=== PATIENT | male | born 1965 | race Caucasian/White ===

== ENCOUNTER 2024-10-11 03:21 | Emergency (ER) | payer BC, SELFPAY ==
[2024-10-11 03:26] VITALS: BP 128/76
[2024-10-11 03:44] VITALS: BMI 33.8
[2024-10-11 03:59] LABS: % Basophils 0.6 % (0-2); % Eosinophils 0.7 % (0-6); % Immature Granulocytes 0.4 % (0-0.5); % Lymphocytes 15.7 % (20.5-51.1); % Neutrophils 74.6 % (42.2-75.2); Absolute Basophils 0.1 10^3/uL (0-0.2); Absolute Eosinophils 0.1 10^3/uL (0-0.7); Absolute Immature Granulocytes 0.1 10^3/uL (0-0.05); Absolute Lymphocytes 2.1 10^3/uL (1.2-3.4); Absolute Monocytes 1.1 10^3/uL (0.1-0.6); Absolute Neutrophils 9.9 10^3/uL (1.4-6.5); Hematocrit 45.7 % (39.0-52.0); Hemoglobin 15.8 g/dL (13.0-18.0); Mean Corp Hgb Conc. 34.6 g/dL (33.0-37.0); Mean Corpuscular Hgb 29.8 pg (27.0-31.0); Mean Corpuscular Volume 86.2 fL (80.0-94.0); Mean Platelet Volume 11.1 fL (7.4-10.4); Nucleated Red Blood Cells % 0 % (-); Platelet Count 208 10^3/uL (130-400); Red Cell Dist. Width 13.9 % (11.5-14.5); White Blood Cell Count 13.2 10^3/uL (4.8-10.8)
[2024-10-11 04:06] LABS: Urine Albumin Negative (Neg - Trace); Urine Bilirubin Negative (Negative); Urine Character Clear (Clear); Urine Color Amber; Urine Glucose 4+ (Negative); Urine Ketone Negative (Negative); Urine Leukocyte Negative (Negative); Urine Nitrite Negative (Negative); Urine Occult Blood Negative (Negative); Urine Specific Gravity 1.015 (<1.030); Urine Urobilinogen Negative (Neg - 1+)
--- NOTE | 2024-10-11 04:10 | ED.GENMED ---
History of Present Illness
<Nohemy Chambers DO - Last Filed: 10/11/24 06:33>
General
Chief Complaint: Abdominal Symptoms
Source: patient
Exam Limitations: none
Time Seen by Provider: 10/11/24 04:01
Nursing documentation reviewed up to this point in time: agreed with
History of Present Illness
History of Present Illness:
This is a 59-year-old gentleman who has history of insulin-dependent diabetes, hypertension, hyperlipidemia. He presents with right flank pain that began early this morning, waking him from sleep. He felt well prior to bed. No insightful injury
but admits to bending over putting moisturizer on his legs just prior to bed. Right flank pain is worse with movement, worse with lying supine. No other associated symptoms. He denies nausea nor vomiting, no diaphoresis, no fever no chills. He
did pass 1 loose stool last night. He also admits to some urinary frequency over the past few days but denies dysuria nor urgency nor hematuria. No coughing or shortness of breath.
No history of similar episodes of flank pain.
No prior abdominal surgeries.
He has not taken anything for pain.
Past History
<Nohemy Chambers DO - Last Filed: 10/11/24 06:33>
Past History
ED Past Medical History: HTN, Hypercholesterolemia, IDDM (Insulin requiring diabetes) and Other (Tinea cruris)
ED Past Surgical History: Other (Ganglion cyst surgery-left wrist )
Social History
Tobacco: Non-smoker
Alcohol: None
Drug: None
Personal:
Living: with family
Employment: Employed
Family History
Family History: Negative CAD
Phy Exam
<Nohemy Chambers DO - Last Filed: 10/11/24 06:33>
Physical Exam
Physical Exam:
GENERAL: 59-year-old obese gentleman appears his stated age, awake and alert, pleasant, appears in no acute distress. is accompanying. Vital signs within normal limits
EYE: anicteric
NECK: Supple, nontender, no meningismus, no significant adenopathy.
ENT: oral mucosa is moist. T no rhinorrhea.
CARDIAC: Regular rate and rhythm. no murmur.
LUNGS: Clear breath sounds bilaterally, no acute respiratory distress, no wheezes/rales/rhonchi
ABDOMEN: Rotund, soft, nondistended, mild tenderness right lateral upper quadrant/right lateral flank region and mild tenderness right mid lateral abdomen. No r/g, no cvat. normoactive BS.
BACK: No midline bony tenderness. Mild tenderness right lower lumbar region. Straight leg raising is negative bilaterally.
NEUROLOGICAL: Alert and oriented x3, no focal neuro deficits. Gait is kowalski and steady.
SKIN: Warm and dry, normal color, skin intact. Fungal rash bilateral groin/bilateral medial upper thighs.
MUSCULOSKELETAL: No C/C/E. peripheral pulses are full and equal b/l. No palpable tenderness.
PSYCH: Normal and appropriate interaction.
Course
<Nohemy Chambers, DO - Last Filed: 10/11/24 06:33>
Orders/Labs/Results
Orders:
Orders
10/11/24 03:40
IV Insert/Care/Rem.- Treatment PRN
10/11/24 03:45
Complete Blood Count/With Diff Urgent
Comprehensive Metabolic Panel Urgent
Lipase Urgent
Urinalysis Reflex To Culture Urgent
Date Specimen was Collected: 10/11/24
Time Specimen was Collected: 03:40
10/11/24 04:09
Ketorolac [Toradol] 15 mg IV NOW STA
10/11/24 04:33
CT Abd/pelvis W Iv Cont Urgent
Comment:
Reason For Exam: acute R flank, RUQ pain
10/11/24 05:00
HYDROmorphone [Dilaudid] 0.5 mg .ROUTE .STK-MED ONE
10/11/24 05:06
HYDROmorphone [Dilaudid] 0.5 mg IV NOW STA
10/11/24 06:18
US Abdomen Complete/Upper Urgent
Comment:
Reason For Exam: acute RUQ, R lat flank pain, elevated LFT's
Abnormal Lab Results
10/11/24
03:45
WBC 13.2 H 10^3/uL
(4.8-10.8)
MPV 11.1 H fL
(7.4-10.4)
Abs Immat Gran (auto) 0.1 H 10^3/uL
(0-0.05)
Absolute Neuts (auto) 9.9 H 10^3/uL
(1.4-6.5)
Absolute Monos (auto) 1.1 H 10^3/uL
(0.1-0.6)
Lymphocytes % 15.7 L %
(20.5-51.1)
Chloride 109 H mmol/L
(98-107)
BUN 21 H mg/dl
(9-20)
Creatinine 0.5 L mg/dL
(0.7-1.3)
Glucose 201 H mg/dl
(70-99)
ALT 93 H U/L
(0-50)
Alkaline Phosphatase 168 H U/L
(38-126)
Lipase 363 H U/L
(23-300)
Urine Glucose 4+ A
(Negative)
10/11/24 03:45
10/11/24 03:45
Vital Signs
Initial and Last Documented VS:
Initial Vital Signs
Temp Pulse Resp BP Pulse Ox
97.5 F 64 22 128/76 95
10/11/24 03:26 10/11/24 03:26 10/11/24 03:26 10/11/24 03:26 10/11/24 03:26
Last Documented Vital Signs
Temp Pulse Resp BP Pulse Ox
97.5 F 63 22 126/76 94
10/11/24 03:26 10/11/24 05:10 10/11/24 03:26 10/11/24 08:08 10/11/24 08:09
<Marlo Dsouza MD - Last Filed: 10/11/24 09:24>
Orders/Labs/Results
Orders:
Orders
10/11/24 03:40
IV Insert/Care/Rem.- Treatment PRN
10/11/24 03:45
Complete Blood Count/With Diff Urgent
Comprehensive Metabolic Panel Urgent
Lipase Urgent
Urinalysis Reflex To Culture Urgent
Date Specimen was Collected: 10/11/24
Time Specimen was Collected: 03:40
10/11/24 04:09
Ketorolac [Toradol] 15 mg IV NOW STA
10/11/24 04:33
CT Abd/pelvis W Iv Cont Urgent
Comment:
Reason For Exam: acute R flank, RUQ pain
10/11/24 05:00
HYDROmorphone [Dilaudid] 0.5 mg .ROUTE .STK-MED ONE
10/11/24 05:06
HYDROmorphone [Dilaudid] 0.5 mg IV NOW STA
10/11/24 06:18
US Abdomen Complete/Upper Urgent
Comment:
Reason For Exam: acute RUQ, R lat flank pain, elevated LFT's
Abnormal Lab Results
10/11/24
03:45
WBC 13.2 H 10^3/uL
(4.8-10.8)
MPV 11.1 H fL
(7.4-10.4)
Abs Immat Gran (auto) 0.1 H 10^3/uL
(0-0.05)
Absolute Neuts (auto) 9.9 H 10^3/uL
(1.4-6.5)
Absolute Monos (auto) 1.1 H 10^3/uL
(0.1-0.6)
Lymphocytes % 15.7 L %
(20.5-51.1)
Chloride 109 H mmol/L
(98-107)
BUN 21 H mg/dl
(9-20)
Creatinine 0.5 L mg/dL
(0.7-1.3)
Glucose 201 H mg/dl
(70-99)
ALT 93 H U/L
(0-50)
Alkaline Phosphatase 168 H U/L
(38-126)
Lipase 363 H U/L
(23-300)
Urine Glucose 4+ A
(Negative)
10/11/24 03:45
10/11/24 03:45
Vital Signs
Initial and Last Documented VS:
Initial Vital Signs
Temp Pulse Resp BP Pulse Ox
97.5 F 64 22 128/76 95
10/11/24 03:26 10/11/24 03:26 10/11/24 03:26 10/11/24 03:26 10/11/24 03:26
Last Documented Vital Signs
Temp Pulse Resp BP Pulse Ox
97.5 F 63 22 126/76 94
10/11/24 03:26 10/11/24 05:10 10/11/24 03:26 10/11/24 08:08 10/11/24 08:09
<Nohemy Chambers, DO - Last Filed: 10/11/24 06:33>
MDM/Problems Addressed
Differential Diagnosis Includes:
Concern for musculoskeletal pain, renal colic/ureteric stone, pyelonephritis, appendicitis, colitis, cholecystitis.
Will check labs, urinalysis and plan for CT abdomen and pelvis.
Will trial a small dose of IV Toradol for pain.
Chronic conditions affecting care: DM and HTN
<Nohemy Chambers DO - Last Filed: 10/11/24 06:33>
*Radiology
Radiology exam reviewed: radiology read reviewed
*Pulse Oximetry
SaO2: 95
Oxygen Mode of Delivery: Room air
Patient hypoxic: no
*Sap Ppm Consultant Interpretation
Rate: normal
Interpretation: normal
Rhythm: sinus
*Critical Care Note
Total Time (30-74mins, 75-104mins- exclusive of procedures): Not Applicable
<Nohemy Chambers DO - Last Filed: 10/11/24 06:33>
Update Note
Update Note:
06:30
No significant relief of pain after small IV dose of Toradol the patient is currently pain-free after an IV dose of Dilaudid.
He continues to deny nausea. He has had no diarrhea. He remains afebrile.
Labs are remarkable for mildly elevated white blood cell count of 13.2.
Mildly elevated ALT at 93, alkaline phosphatase at 168. Normal bilirubin. Mildly elevated lipase at 363. Mildly elevated random glucose 201.
Urinalysis unremarkable save for for glucose.
CAT scan concerning for acute gastroenteritis without obstruction or perforation. There is also note of slightly distended gallbladder with trace surrounding free fluid.
I am concerned that right flank, right upper quadrant pain is acute cholecystitis in nature versus acute biliary colic. Less likely gastroenteritis as cause for symptoms especially as he has had no nausea, vomiting, diarrhea.
Will check abdominal ultrasound and continue to observe.
<Marlo Dsouza MD - Last Filed: 10/11/24 09:24>
Update Note
Update Note:
06:30
No significant relief of pain after small IV dose of Toradol the patient is currently pain-free after an IV dose of Dilaudid.
He continues to deny nausea. He has had no diarrhea. He remains afebrile.
Labs are remarkable for mildly elevated white blood cell count of 13.2.
Mildly elevated ALT at 93, alkaline phosphatase at 168. Normal bilirubin. Mildly elevated lipase at 363. Mildly elevated random glucose 201.
Urinalysis unremarkable save for for glucose.
CAT scan concerning for acute gastroenteritis without obstruction or perforation. There is also note of slightly distended gallbladder with trace surrounding free fluid.
I am concerned that right flank, right upper quadrant pain is acute cholecystitis in nature versus acute biliary colic. Less likely gastroenteritis as cause for symptoms especially as he has had no nausea, vomiting, diarrhea.
Will check abdominal ultrasound and continue to observe.
0915...
Ultrasound shows gallbladder wall thickening. No other findings to support acute cholecystitis. No gallstones pericholecystic fluid. Negative Hidalgo sign. CT also confirms enteritis with some gallbladder wall thickening. Abdomen is soft and
nontender at this time. I had a lengthy discussion with the patient. Diagnosis is somewhat unclear still. His story is more concerning for a gallbladder issue and he does have some gallbladder wall thickening elevated white count and mild LFT
elevation. This could be an acalculous cholecystitis. I had recommended admission observation in the hospital repeat LFTs possible HIDA scan in the hospital to make sure this does not progress to a severe infected gallbladder or sepsis secondary
to acute acalculous cholecystitis. After discussion, and a private discussion the patient had with his , patient does not want to stay in the hospital. Upon reentering the room after the initial conversation patient was dressed wanting to
leave the hospital. I had a very long second conversation, reiterating the first conversation, explaining of the uncertainty of the diagnosis and the possibility of a infected gallbladder and the fact that this can progress to sepsis and become
life-threatening. He would prefer observation as outpatient.
ED Attending Note
<Nohemy Chambers DO - Last Filed: 10/11/24 06:33>
-
Portions of this chart may have been created with voice recognition software.� Occasional wrong word or��sound alike� substitutions may have occurred due to the inherent limitations of voice recognition software.
Discharge Plan
Departure
Patient Disposition: Home (Routine Discharge)
Date of Disposition: 10/11/24
Time of Disposition: 09:20
Patient with high blood pressure during this ER visit?: Yes
Discharge Problem:
Abdominal flank pain, Possible acalculous cholecystitis, Possible enteritis
Instructions: Abdominal Pain, BLOOD PRESSURE
Prescriptions:
No Action
enalapril maleate [Vasotec] 20 MG tablet
20 mg PO DAILY
pioglitazone [Actos] 45 MG tablet
45 mg PO DAILY
aspirin 81 MG tablet,delayed release (DR/EC)
81 mg PO DAILY
glimepiride 4 MG tablet
4 mg PO DAILY
Patient Comments:
pt states that this was d/c'd [employer]
insulin NPH isoph U-100 human [Humulin N NPH U-100 Insulin] 100 UNIT/1 ML suspension
25 unit SQ DAILY
hydrochlorothiazide 12.5 MG capsule
12.5 mg PO DAILY
multivitamin 1 EACH capsule
1 ea PO DAILY
metformin 500 MG tablet extended release 24 hr
1,000 mg PO BID
coenzyme Q10 120 MG capsule
100 mg PO DAILY
rosuvastatin [Crestor] 20 MG tablet
10 mg PO DAILY
exenatide [Byetta] 10 MCG/0.04 ML pen injector
10 mcg SQ BID
Referrals:
Keisha Cabello MD [Family Provider, Family Practice] - Tomorrow
Activity Restrictions/Additional Instructions:
As we discussed, it would be safer to stay in the hospital and treat this as a possible infected gallbladder.
Please return immediately with any recurrence of this unusual new pain that you had or fever or vomiting.
Call your primary physician tomorrow. Would consider outpatient HIDA scan and repeating labs in the next few days
Interventions
Interventions:
*Risk Screen - Suicide Last Done: 10/11/24 03:26
*General Assessment Last Done: 10/11/24 03:44
*Neglect/Abuse Screening Last Done: 10/11/24 03:26
*ED- Fall Risk Assessment Last Done: 10/11/24 03:44
*ED COVID-19 Vaccine History Last Done: 10/11/24 03:44
UE-Ohspmx-Owpeuplqef Assessment Last Done: 10/11/24 03:44
Discharge Date and Time
Print Language: LUX[place]BOURGISH
[2024-10-11] MEDS: TORADOL 15 MG IV (04:12)
[2024-10-11 04:26] LABS: ALT (SGPT) 93 U/L (0-50); AST (SGOT) 59 U/L (17-59); Albumin 4.3 g/dl (3.5-5.0); Alkaline Phosphatase 168 U/L (38-126); Blood Urea Nitrogen 21 mg/dl (9-20); Calcium 9.3 mg/dl (8.4-10.2); Carbon Dioxide 22 mmol/L (22-30); Chloride 109 mmol/L (98-107); Estimated Creatinine Clearance > 125 ml/min; Glucose 201 mg/dl (70-99); Lipase 363 U/L (23-300); Potassium 3.8 mmol/L (3.5-5.1); Sodium 140 mmol/L (135-145); Total Bilirubin 0.8 mg/dl (0.2-1.3); eGFR > 60.00
[2024-10-11] MEDS: DILAUDID 0.5 MG IV (05:09)
[2024-10-11 05:10] VITALS: BP 150/75
--- NOTE | 2024-10-11 05:14 | EDRN ---
patient states pain is a 7/10 now, slightly improved with pain meds, Dr. Chambers ordered more pain meds, will continue to monitor.
[2024-10-11 05:23] VITALS: BP 141/75
[2024-10-11 08:08] VITALS: BP 126/76
== END 2024-10-11 09:45 | disposition home or self-care (01) ==
LOC: EMR 03:21
PROVIDERS: EMERGENCY PHYSICIAN Emergency Medicine; FAMILY PHYSICIAN Family Medicine
DX: R10.9 Unspecified abdominal pain (principal); I10 Essential (primary) hypertension; E78.00 Pure hypercholesterolemia, unspecified; E11.9 Type 2 diabetes mellitus without complications
CPT/HCPCS: 99284; 96374; 96375; 74177; 76700; 80053; 81003; 83690; 85025; Q9967